=== PATIENT | male | born 1980 | race Caucasian/White ===

== ENCOUNTER 2024-04-23 11:35 | Emergency (ER) | payer BC ==
[~2024-04-23] VITALS: Ht 177.8 cm; Wt 89.6 kg
[2024-04-23] MEDS: azithromycin 250mg tablet PO ONE (12:33)
[2024-04-23] MEDS: CefTRIAXone 1000mg IM Kit (w/lidocaine diluent) IM ONE (12:33)
[2024-04-23 12:36] VITALS: BP 124/86; PULSE 88; RESP 16; TEMP 98.8; O2SAT 98
[2024-04-26 05:12] LABS: CHLAMYDIA TRACHOMATIS, NAA Negative (Negative)
== END 2024-04-23 12:37 | disposition home or self-care (01) ==
LOC: ER 11:36
DX: N34.2 Other urethritis (principal)
CPT/HCPCS: 36415; 87491; 87591; 96372; 99283; J0696